=== PATIENT | male | born 1950 | race African-American/Black ===

== ENCOUNTER 2018-01-05 06:51 | Day surgery (SDC) | payer MEDICARE, MEDICAID ==
--- NOTE | 2018-01-02 14:48 | Pre-Procedure Note/Attestation ---
Pre-Procedure Note/Attestation Complete Prior to Procedure Planned Procedure: right Procedure Narrative: phaco with IOL Indications for Procedure Pre-Operative Diagnosis: cataract Attestation I attest that I discussed the nature of the procedure; its benefits; risks and complications; and alternatives (and the risks and benefits of such alternatives ), prior to the procedure, with the patient (or the patient's legal airport representative). I attest that, if there was a reasonable possibility of needing a blood transfusion, the patient (or the patient's legal airport representative) was given the [facility] standardized written summary, pursuant to the [place] Blood Safety Act ([place] Health and Safety Code # 1645, as amended). I attest that I re-evaluated the patient just prior to the surgery and that there has been no change in the patient's H&P, except as documented below: CASANDRA COTE Jan 02, 2018 14:48
--- NOTE | 2018-01-02 14:49 | Opthalmology H&P ---
Ophthalmology H&P H&P Chief Complaint: decreased vision in right eye HPI Vision Affects Ability to: read, focus/use eyes together, manage personal affairs HPI Narrative blurry vision Exam Visual Acuity: OD: 20/60 OS: 20/40 Tension: OD: 16 OS: 19 Eye Exam: normal OU: external exam, palpebral fissure-width, marginal reflex distance, levator function, corneas, anterior chambers, fundus exam; findings: lens - OD: ns OS: ns Assessment/Plan Diagnosis: (1) Nuclear age-related cataract, right eye Treatment Plan: cataract extraction w/ lens implant Goals of Treatment: improvement of vision, enhance quality of life Attestation Attestation The risks and benefits of the surgery as well as alternative procedures were explained to the patient in detail. CASANDRA COTE Jan 02, 2018 14:49
[~2018-01-05] VITALS: Ht 177.8 cm; Wt 92.1 kg
[2018-01-05] MEDS ORDERED: Pilocarpine 2% Opth 15ml Soln ONE (07:00)
[2018-01-05] MEDS ORDERED: Pred Forte 1% Opth Susp 1ml ONE (07:00)
[2018-01-05] MEDS ORDERED: Proparacaine 0.5% Opth Soln 15ml RIGHT EYE ONE (07:00)
[2018-01-05] MEDS ORDERED: Akten 3.5% 1ml Btl RIGHT EYE ONE (07:00)
[2018-01-05] MEDS ORDERED: Tetracaine 0.5% Opth 4ml Soln RIGHT EYE ONE (07:00)
[2018-01-05] MEDS ORDERED: Maxitrol Opth Oint 3.5gm ONE (07:00)
[2018-01-05] MEDS ORDERED: Dexamethasone 4mg/ml vial ONE (07:00)
[2018-01-05] MEDS: Tropicamide 1% Opth 15ml Soln RIGHT EYE SCH ×3 (13:27→13:37)
[2018-01-05] MEDS: Diclofenac Sod 0.1% Op Soln RIGHT EYE SCH ×3 (13:27→13:37)
[2018-01-05] MEDS: Cyclopentolate 1% Opth Sol 2ml RIGHT EYE SCH ×3 (13:27→13:37)
[2018-01-05] MEDS: Phenylephrine 10% Opth Soln 5ml RIGHT EYE SCH ×3 (13:27→13:37)
[2018-01-05] MEDS: Tobramycin Op Soln 0.3% 5ml RIGHT EYE SCH ×3 (13:27→13:37)
[2018-01-05 13:35] VITALS: BP 114/71
[2018-01-05] MEDS ORDERED: LISINOPRIL10 MG ORAL (13:47)
[2018-01-05] MEDS ORDERED: DICLOFENAC SODI75 MG ORAL (13:47)
[2018-01-05] MEDS ORDERED: FARXIGA10 MG PO (13:47)
[2018-01-05] MEDS ORDERED: OXYCODONE HCL30 MG ORAL (13:47)
[2018-01-05] MEDS ORDERED: ASPIR 8181 MG ORAL (13:47)
[2018-01-05] MEDS ORDERED: DILTIAZEM ER240 M2 ORAL (13:47)
[2018-01-05] MEDS ORDERED: FOLIC ACID1 MG ORAL (13:47)
[2018-01-05] MEDS ORDERED: GLIMEPIRIDE4 MG ORAL (13:47)
[2018-01-05] MEDS ORDERED: ZETIA10 MG ORAL (13:47)
[2018-01-05] MEDS ORDERED: OXYCONTIN80 MG ORAL (13:47)
[2018-01-05] MEDS ORDERED: DILTIAZEM ER120 M2 PO (13:47)
[2018-01-05] MEDS ORDERED: OMEGA 3 FISH O1 EAC1 PO (13:47)
[2018-01-05] MEDS ORDERED: ATORVASTATIN CA20 MG ORAL (13:47)
[2018-01-05] MEDS ORDERED: BSS 500ml btl ONE (13:55)
[2018-01-05] MEDS ORDERED: EPINEPHrine 1mg/1ml Amp ONE (13:55)
[2018-01-05] MEDS ORDERED: BSS 15ml BTL ONE (13:55)
[2018-01-05] MEDS ORDERED: Sodium Hyaluronate 14 mg/ml 0.85ml ONE (13:55)
[2018-01-05] MEDS ORDERED: Sterile Water Irrig 1000ml IRRIG ONE (14:00)
[2018-01-05] MEDS ORDERED: NS Irrig 1000ml ONE (14:00)
[2018-01-05] MEDS ORDERED: Midazolam 2mg/2ml Inj ONE (14:00)
[2018-01-05] MEDS ORDERED: fentaNYL 100 mcg/2 mL IV ONE (14:00)
[2018-01-05] MEDS ORDERED: LR 1000ml ONE (14:00)
--- NOTE | 2018-01-05 14:19 | Anethesia Preoperative Eval ---
Anesthesia Pre-op PMH/ROS General Date of Evaluation: Jan 05, 2018 Time of Evaluation: 13:59 Anesthesiologist: deandre ASA Score: ASA 3 Mallampati Score Class I : Soft palate, uvula, fauces, pillars visible Class II: Soft palate, uvula, fauces visible Class III: Soft palate, base of uvula visible Class IV: Only hard plate visible Mallampati Classification: Class I Surgeon: dominik Diagnosis: cataract right eye Surgical Procedure: cataract extraction w/ iol implant right eye Anesthesia History: none Social History: smoking - former smoker Family History: no anesthesia problems Allergies: Coded Allergies: No Known Allergies (Unverified , 01/05/18) Medications: see eMAR Past Medical History Cardiovascular: Reports: HTN, other - hypercholesterolemia Endocrine: Reports: DM Musculoskeletal/Integumentary: Reports: OA Anesthesia Pre-op Phys. Exam Physician Exam Last Vital Signs Date Time Temp Pulse Resp B/P (MAP) Pulse Ox O2 Delivery O2 Flow Rate FiO2 01/05/18 13:35 97.8 54 18 114/71 (85) 99 97.8 01/05/18 13:23 Room Air Constitutional: NAD Neurologic: CN 2-12 intact Cardiovascular: RRR Respiratory: CTA Gastrointestinal: S/NT/ND Airway Exam Mallampati Score: Class II MO: limited Neck: flexible TMD: 2fb ROM: limited Anesthesia Pre-op A/P Risk Assessment & Plan Assessment: asa3 Plan: mac Status Change Before Surgery: No Pre-Antibiotics Drug: Carrie Davis MD Jan 05, 2018 14:19
[2018-01-05] MEDS ORDERED: LR 1000ml 1,000 ML IVLG SCH (14:20)
[2018-01-05 14:30] VITALS: BP 110/75
[2018-01-05] MEDS ORDERED: Midazolam 2mg/2ml Inj IVP PRN (14:30)
[2018-01-05] MEDS ORDERED: Labetalol 5mg/ml 20ml vial IV PRN (14:30)
[2018-01-05] MEDS ORDERED: DiphenhydrAMINE 50mg/ml Inj IVP PRN (14:30)
[2018-01-05] MEDS ORDERED: Atropine Inj 1mg/10ml Syr IV PRN (14:30)
[2018-01-05] MEDS ORDERED: fentaNYL 100 mcg/2 mL IV PRN (14:30)
[2018-01-05 14:35] VITALS: BP 119/77
[2018-01-05 14:40] VITALS: BP 122/76
[2018-01-05 14:53] VITALS: BP 116/79
--- NOTE | 2018-01-05 14:54 | Immediate Post-Op Evaluation ---
Immediate Post-Op Evalulation Immediate Post-Op Evalulation Procedure: cataract extraction w/ iol implant right eye Date of Evaluation: Jan 05, 2018 Time of Evaluation: 14:42 IV Fluids: 250ml lr Blood Products: none Estimated Blood Loss: negligible Blood Pressure Systolic: 110 Blood Pressure Diastolic: 75 Pulse Rate: 58 Respiratory Rate: 18 O2 Sat by Pulse Oximetry: 99 Temperature (Fahrenheit): 97.8 Pain Score (1-10): 0 Nausea: No Vomiting: No Complications none Patient Status: awake, reacts, patent Hydration Status: adequate Drug: Carrie Davis MD Jan 05, 2018 14:54
--- NOTE | 2018-01-05 14:55 | 48 Hour Post Anesthesia Eval ---
Post Anesthesia Evaluation Procedure: cataract extraction w/ iol implant right eye Date of Evaluation: Jan 05, 2018 Time of Evaluation: 14:44 Blood Pressure Systolic: 112 0: 77 Pulse Rate: 58 Respiratory Rate: 18 Temperature (Fahrenheit): 97.8 O2 Sat by Pulse Oximetry: 99 Airway: patent Nausea: No Vomiting: No Pain Intensity: 0 Hydration Status: adequate Cardiopulmonary Status: stable Mental Status/LOC: patient returned to baseline Post-Anesthesia Complications: none Follow-up care needed: N/A Carrie Calvillo MD Jan 05, 2018 14:55
[2018-01-05 15:00] VITALS: BP 136/79
[2018-01-05] MEDS ORDERED: Povidone-Iodine 5% opth solution ONE (15:03)
--- NOTE | 2018-01-06 09:35 | Brief Operative Note ---
Immediate Post Operative Note Operative Note Chief Complaint: blurry vision Pre-op Diagnosis: cataract, OD Procedure: phaco with IOL, OD Post-op Diagnosis: Pseudophakia Post-op Diagnosis: same as pre-op Findings: consistent w/pre-op dx studies Surgeon: Valeria Anesthesiologist: Marcelino Romero Anesthesia: MAC Specimen: none Complications: none Condition: stable Fluids: LR Estimated Blood Loss: none Drains: none Implant(s) used?: Yes CASANDRA COTE Jan 06, 2018 09:35
--- NOTE | 2018-01-06 09:36 | Operative Note - PDOC ---
Operative Note Operative Note Date of Operation/Procedure: Jan 05, 2018 Chief Complaint: blurry vision Pre-op Diagnosis: cataract, OD Procedure: phaco with IOL, OD Post-op Diagnosis: Pseudophakia Post-op Diagnosis: same as pre-op Operative Findings: consistent w/pre-op dx studies Surgeon: Valeria Anesthesiologist: Marcelino Romero Anesthesia: MAC Specimen: none Complications: none Condition: stable Fluids: LR Estimated Blood Loss: none Drains: none Implant(s) used?: Yes Indications for Procedure cataract Description of Procedure This patient has been complaining visually significant cataract in the affected eye with the best corrected visual acuity under moderate glare conditions worse. The patient complains of difficulties with glare in performing activities of daily living and wants to manage personal affairs with comfort and accuracy and see well enough to move with safety at home and outdoors. The risks, benefits and alternatives of the procedure were discussed with the patient in the office prior to scheduling surgery. All questions from the patient were answered after the surgical procedure was explained in detail. The risks of the procedure as explained to the patient include, but are not limited to, pain, infection, bleeding, loss of vision, retinal detachment, need for further surgery, loss of lens nucleus, double vision, etc. Alternative procedures were discussed which include, to do nothing or seek a second opinion. Informed consent for this procedure was obtained from the patient. The patient was referred to a primary care physician for a cardiopulmonary clearance prior to surgery, after proper evaluation was done patient was properly scheduled for outpatient surgery. The patient was brought to the operating room where the anesthesiologist established I.V. lines and cardiac monitoring leads. Mild intravenous sedation was administered. The patient was then prepared with a 5% solution of povidone -iodine to the conjunctival fornix and lashes, and a 5% solution of povidone- iodine to the lids and periorbital skin. The patient was then draped in the usual sterile fashion. A lid speculum was then placed in the operative eye. A keratome blade was then used to create a biplanar incision into the anterior chamber. Viscoelastics was then instilled into the anterior chamber. A 3-mm single pass clear corneal incision was made just anterior to the vascular arcade of the temporal limbus using a keratome. Anterior capsulorrhexis was created. The nucleus was hydrodissected and hydrodelineated, with a G 27 cannula and was freely movable in the capsular bag. The nucleus was then phacoemulsified using a quadrantic [id number] technique. Following the deep groove formation, the lens was split bimanually and the resultant quadrants and cortical material was removed under vacuum burst-mode phacoemulsification. Peripheral cortex was removed with the irrigation and aspiration handpiece. The capsular bag was expanded with viscoelastic. The intraocular lens was then inspected for right power and size and thought to be satisfactory. The implant was inspected under the microscope and found to be free of defects. The implant was inserted into the cartridge system under viscoelastic and placed in the capsular bag. The trailing haptic was positioned with the cartridge system. Viscoelastics was removed from the anterior chamber using the irrigation and aspiration unit. The corneal wound was then tested for leaks and none were found. The lid speculum were then removed. Sponge and needle counts were correct. An eye patch and shield were placed over the operative eye. The patient was taken to the recovery room in stable condition. There were no complications. The patient tolerated the procedure well. The patient was then transferred to the ambulatory surgery unit in stable and satisfactory condition , was given detailed written instructions and asked to follow up in the office the next day. CASANDRA COTE Jan 06, 2018 09:36
== END 2018-01-05 15:30 | disposition home or self-care (01) ==
LOC: SUR 06:51
DX: H25.11 Age-related nuclear cataract, right eye (principal); I25.10 Atherosclerotic heart disease of native coronary artery without angina pectoris; I10 Essential (primary) hypertension; E66.9 Obesity, unspecified; M54.30 Sciatica, unspecified side; E78.00 Pure hypercholesterolemia, unspecified; M19.90 Unspecified osteoarthritis, unspecified site; E11.9 Type 2 diabetes mellitus without complications; Z79.84 Long term (current) use of oral hypoglycemic drugs; E78.5 Hyperlipidemia, unspecified; F41.9 Anxiety disorder, unspecified; G47.30 Sleep apnea, unspecified; R94.31 Abnormal electrocardiogram [ECG] [EKG]; N52.9 Male erectile dysfunction, unspecified
CPT/HCPCS: 66984; 82962; J0171; J1100; J2250; J3010; J3370; J7120; V2632; 94003; 94150

== ENCOUNTER 2018-02-26 05:32 | Day surgery (SDC) | payer MEDICARE, MEDICAID ==
--- NOTE | 2018-02-24 08:13 | Pre-Procedure Note/Attestation ---
Pre-Procedure Note/Attestation Complete Prior to Procedure Planned Procedure: left Procedure Narrative: PHACO WITH IOL Indications for Procedure Pre-Operative Diagnosis: CATARACT Attestation I attest that I discussed the nature of the procedure; its benefits; risks and complications; and alternatives (and the risks and benefits of such alternatives ), prior to the procedure, with the patient (or the patient's legal mechanical service representative). I attest that, if there was a reasonable possibility of needing a blood transfusion, the patient (or the patient's legal mechanical service representative) was given the [facility] standardized written summary, pursuant to the [place] Blood Safety Act ([place] Health and Safety Code # 1645, as amended). I attest that I re-evaluated the patient just prior to the surgery and that there has been no change in the patient's H&P, except as documented below: CASANDRA COTE Feb 24, 2018 08:13
--- NOTE | 2018-02-24 08:15 | Opthalmology H&P ---
Ophthalmology H&P H&P Chief Complaint: decreased vision in left eye HPI Vision Affects Ability to: read, focus/use eyes together, manage personal affairs HPI Narrative BLURRY VISION Exam Visual Acuity: OD; 20/40 OS; 20/50 Tension: OD; 15 OS; 18 Eye Exam: normal OU: external exam, palpebral fissure-width, marginal reflex distance, levator function, corneas, anterior chambers, fundus exam; findings: lens - OD; IOL OS; NS Assessment/Plan Diagnosis: (1) Nuclear cataract of left eye Treatment Plan: cataract extraction w/ lens implant Goals of Treatment: improvement of vision, enhance quality of life Attestation Attestation The risks and benefits of the surgery as well as alternative procedures were explained to the patient in detail. CASANDRA COTE Feb 24, 2018 08:15
[~2018-02-26] VITALS: Ht 177.8 cm; Wt 92.5 kg
[2018-02-26] VITALS (8 sets, daily range): BP systolic 107–134; BP diastolic 56–80
[~2018-02-26 05:32] MED LIST: ASPIR 8181 MG ORAL; ATORVASTATIN CA20 MG ORAL; DICLOFENAC SODI75 MG ORAL; DILTIAZEM ER120 M2 PO; DILTIAZEM ER240 M2 ORAL; FARXIGA10 MG PO; FOLIC ACID1 MG ORAL; GLIMEPIRIDE4 MG ORAL; LISINOPRIL10 MG ORAL; OMEGA 3 FISH O1 EAC1 PO; OXYCODONE HCL30 MG ORAL; OXYCONTIN80 MG ORAL; ZETIA10 MG ORAL
[2018-02-26] MEDS: Tropicamide 1% Opth 15ml Soln LEFT EYE SCH ×3 (06:09→06:26)
[2018-02-26] MEDS: Tobramycin Op Soln 0.3% 5ml LEFT EYE SCH ×3 (06:09→06:26)
[2018-02-26] MEDS: Diclofenac Sod 0.1% Op Soln LEFT EYE SCH ×4 (06:09→07:15)
[2018-02-26] MEDS: Phenylephrine 10% Opth Soln 5ml LEFT EYE SCH ×3 (06:10→06:26)
[2018-02-26] MEDS: Cyclopentolate 1% Opth Sol 2ml LEFT EYE SCH ×3 (06:10→06:26)
[2018-02-26] MEDS ORDERED: METFORMIN HCL1000 M1 ORAL (06:18)
[2018-02-26] MEDS ORDERED: Midazolam 2mg/2ml Inj ONE (06:57)
[2018-02-26] MEDS ORDERED: fentaNYL 100 mcg/2 mL IV ONE (06:57)
[2018-02-26] MEDS ORDERED: Dexamethasone 4mg/ml vial ONE (07:00)
[2018-02-26] MEDS ORDERED: NS Irrig 1000ml ONE (07:00)
[2018-02-26] MEDS ORDERED: Sterile Water Irrig 1000ml IRRIG ONE (07:00)
[2018-02-26] MEDS ORDERED: LR 1000ml ONE (07:00)
[2018-02-26] MEDS ORDERED: Proparacaine 0.5% Opth Soln 15ml LEFT EYE ONE (07:00)
[2018-02-26] MEDS ORDERED: Tetracaine 0.5% Opth 4ml Soln LEFT EYE ONE (07:00)
[2018-02-26] MEDS ORDERED: Maxitrol Opth Oint 3.5gm ONE (07:00)
[2018-02-26] MEDS ORDERED: Pilocarpine 1% Opth 15ml Soln ONE (07:00)
[2018-02-26] MEDS ORDERED: Pred Forte 1% Opth Susp 1ml ONE (07:00)
[2018-02-26] MEDS ORDERED: Akten 3.5% 1ml Btl LEFT EYE ONE (07:00)
[2018-02-26] MEDS ORDERED: Carbachol 0.01% Op Soln 1.5ml vial ONE (07:14)
[2018-02-26] MEDS ORDERED: Lidocaine 2% MPF 5ml Vial INJ ONE (07:14)
[2018-02-26] MEDS ORDERED: EPINEPHrine 1mg/1ml Amp ONE (07:14)
[2018-02-26] MEDS ORDERED: Lidocaine 4% Amp ONE (07:14)
[2018-02-26] MEDS ORDERED: acetaZOLAMIDE 500mg Inj ONE (07:15)
[2018-02-26] MEDS ORDERED: Bupivacaine 0.75% 30ml vial INJ ONE (07:15)
[2018-02-26] MEDS ORDERED: BSS 500ml btl ONE (07:15)
[2018-02-26] MEDS ORDERED: Povidone-Iodine 5% opth solution ONE (07:15)
[2018-02-26] MEDS ORDERED: BSS 15ml BTL ONE (07:15)
[2018-02-26] MEDS ORDERED: Sodium Hyaluronate 14 mg/ml 0.85ml ONE (07:16)
--- NOTE | 2018-02-26 07:47 | Anethesia Preoperative Eval ---
Anesthesia Pre-op PMH/ROS General Date of Evaluation: Feb 26, 2018 Time of Evaluation: 07:16 Anesthesiologist: Xavi ASA Score: ASA 3 Mallampati Score Class I : Soft palate, uvula, fauces, pillars visible Class II: Soft palate, uvula, fauces visible Class III: Soft palate, base of uvula visible Class IV: Only hard plate visible Mallampati Classification: Class II Surgeon: Valeria Diagnosis: L eye cataracrt Surgical Procedure: L eye cataract extraction Anesthesia History: none Family History: no anesthesia problems Allergies: Coded Allergies: No Known Allergies (Unverified , 02/26/18) Medications: see eMAR Patient NPO?: Yes Past Medical History Cardiovascular: Reports: HTN, CAD - stable; Denies: MT, valve dz, arrhythmia, other Pulmonary: Denies: asthma, COPD, DA, other Gastrointestinal/Genitourinary: Reports: GERD; Denies: CRI, ESRD, other Neurologic/Psychiatric: Denies: dementia, CVA, depression/anxiety, TIA, other Endocrine: Reports: DM; Denies: hypothyroidism, steroids, other HEENT: Reports: cataract (L), cataract (R); Denies: glaucoma, [place] (L), [place] (R), other Hematology/Immune: Denies: anemia, DVT, bleeding disorder, other Musculoskeletal/Integumentary: Reports: DJD; Denies: OA, RA, DDD, edema, other PMH Narrative: as above PSxH Narrative: bilateral knee replacement Anesthesia Pre-op Phys. Exam Physician Exam Last Vital Signs Date Time Temp Pulse Resp B/P (MAP) Pulse Ox O2 Delivery O2 Flow Rate FiO2 02/26/18 06:20 Room Air 02/26/18 06:12 98.8 70 18 129/76 95 98.8 Constitutional: NAD Neurologic: CN 2-12 intact Cardiovascular: RRR, no M/R/G Respiratory: CTA Gastrointestinal: S/NT/ND Airway Exam Mallampati Score: Class II MO: full Neck: flexible ROM: full Teeth: intact Dentures: no upper, no lower Anesthesia Pre-op A/P Labs see chart Studies Pre-op Studies: EKG - NSR Risk Assessment & Plan Assessment: ASA 3 Plan: MAC Pre-Antibiotics Drug: none Diego Hurley MD Feb 26, 2018 07:47
[2018-02-26] MEDS ORDERED: LR 1000ml 1,000 ML IVLG SCH (07:49)
[2018-02-26] MEDS ORDERED: fentaNYL 100 mcg/2 mL IV PRN (08:00)
[2018-02-26] MEDS ORDERED: DiphenhydrAMINE 50mg/ml Inj IVP PRN (08:00)
--- NOTE | 2018-02-26 08:26 | Immediate Post-Op Evaluation ---
Immediate Post-Op Evalulation Immediate Post-Op Evalulation Procedure: L eye cataract extraction with IOL Date of Evaluation: Feb 26, 2018 Time of Evaluation: 08:01 IV Fluids: 200 Blood Products: none Estimated Blood Loss: none Urinary Output: none Blood Pressure Systolic: 123 Blood Pressure Diastolic: 56 Pulse Rate: 72 Respiratory Rate: 20 O2 Sat by Pulse Oximetry: 99 Temperature (Fahrenheit): 97.6 Pain Score (1-10): 1 Nausea: No Vomiting: No Complications none Patient Status: awake, patent, none Hydration Status: adequate Diego Hurley MD Feb 26, 2018 08:26
--- NOTE | 2018-02-26 09:16 | 48 Hour Post Anesthesia Eval ---
Post Anesthesia Evaluation Procedure: L eye cataract extraction with IOL Date of Evaluation: Feb 26, 2018 Time of Evaluation: 09:15 Blood Pressure Systolic: 134 0: 56 Pulse Rate: 78 Respiratory Rate: 20 Temperature (Fahrenheit): 97.4 O2 Sat by Pulse Oximetry: 98 Airway: patent Nausea: No Vomiting: No Pain Intensity: 1 Hydration Status: adequate Cardiopulmonary Status: stable Mental Status/LOC: patient returned to baseline Follow-up Care/Observations: n/a Post-Anesthesia Complications: none Follow-up care needed: ready to discharge Diego Hurley MD Feb 26, 2018 09:16
--- NOTE | 2018-02-28 15:15 | Brief Operative Note ---
Immediate Post Operative Note Operative Note Chief Complaint: BLURRY VISION Pre-op Diagnosis: CATARACT, os Procedure: PHACO WITH IOL; Post-op Diagnosis: PSEUDOPHAKIA Post-op Diagnosis: same as pre-op Surgeon: ROCAEL Anesthesiologist: SHANTE Anesthesia: MAC Specimen: none Complications: none Condition: stable Fluids: LR Estimated Blood Loss: none Drains: none Implant(s) used?: Yes Raj Shaw MD Feb 28, 2018 15:15
--- NOTE | 2018-02-28 15:16 | Operative Note - PDOC ---
Operative Note Operative Note Date of Operation/Procedure: Feb 26, 2018 Chief Complaint: BLURRY VISION Pre-op Diagnosis: CATARACT, os Procedure: PHACO WITH IOL; Post-op Diagnosis: PSEUDOPHAKIA Post-op Diagnosis: same as pre-op Surgeon: ROCAEL Anesthesiologist: SHANTE Anesthesia: MAC Specimen: none Complications: none Condition: stable Fluids: LR Estimated Blood Loss: none Drains: none Implant(s) used?: Yes Indications for Procedure CATARAC T Description of Procedure This patient has been complaining visually significant cataract in the affected eye with the best corrected visual acuity under moderate glare conditions worse. The patient complains of difficulties with glare in performing activities of daily living and wants to manage personal affairs with comfort and accuracy and see well enough to move with safety at home and outdoors. The risks, benefits and alternatives of the procedure were discussed with the patient in the office prior to scheduling surgery. All questions from the patient were answered after the surgical procedure was explained in detail. The risks of the procedure as explained to the patient include, but are not limited to, pain, infection, bleeding, loss of vision, retinal detachment, need for further surgery, loss of lens nucleus, double vision, etc. Alternative procedures were discussed which include, to do nothing or seek a second opinion. Informed consent for this procedure was obtained from the patient. The patient was referred to a primary care physician for a cardiopulmonary clearance prior to surgery, after proper evaluation was done patient was properly scheduled for outpatient surgery. The patient was brought to the operating room where the anesthesiologist established I.V. lines and cardiac monitoring leads. Mild intravenous sedation was administered. The patient was then prepared with a 5% solution of povidone -iodine to the conjunctival fornix and lashes, and a 5% solution of povidone- iodine to the lids and periorbital skin. The patient was then draped in the usual sterile fashion. A lid speculum was then placed in the operative eye. A keratome blade was then used to create a biplanar incision into the anterior chamber. Viscoelastics was then instilled into the anterior chamber. A capsulorrhexis was then fashioned with an utrata forceps followed by a BSS and a cannula were then used to hydrodissect and hydro delineate the lens. Paracentesis incision was made at 3 o'clock with sharp blade. The phacoemulsification unit, after being properly adjusted and tested, was then used to emulsify the nucleus. Residual cortical material was aspirated with the irrigation and aspiration unit. [place] was then instilled into the anterior chamber. The corneal wound was then enlarged to the size of the optic with the izzy keratome blade. The intraocular lens was then inspected for right power and size and thought to be satisfactory. Then the lens was gently placed in the capsular bag. Positioning within the capsular bag was confirmed by direct visualization. Optic centration was accomplished with a [place] hook. Viscoelastics was removed from the anterior chamber using the irrigation and aspiration unit. The corneal wound was then tested for leaks and none were found. The lid speculum were then removed. Sponge and needle counts were correct. An eye patch and shield were placed over the operative eye. The patient was taken to the recovery room in stable condition. There were no complications. The patient tolerated the procedure well. The patient was then transferred to the ambulatory surgery unit in stable and satisfactory condition , was given detailed written instructions and asked to follow up in the office the next day. Raj Shaw MD Feb 28, 2018 15:16
== END 2018-02-26 08:50 | disposition home or self-care (01) ==
LOC: SUR 05:32
DX: H25.12 Age-related nuclear cataract, left eye (principal); E78.00 Pure hypercholesterolemia, unspecified; I25.10 Atherosclerotic heart disease of native coronary artery without angina pectoris; I10 Essential (primary) hypertension; E11.9 Type 2 diabetes mellitus without complications; E03.9 Hypothyroidism, unspecified; K21.9 Gastro-esophageal reflux disease without esophagitis; M19.90 Unspecified osteoarthritis, unspecified site; Z87.891 Personal history of nicotine dependence; Z96.653 Presence of artificial knee joint, bilateral
CPT/HCPCS: 66984; 82962; J0171; J1100; J2250; J3010; J3370; V2632; 94003; 94150